=== PATIENT | male | born 1970 | race Caucasian/White ===

== ENCOUNTER 2024-06-16 01:29 | Emergency (ER) | payer OTHER ==
[2024-06-16] MEDS: Benzonatate 100 MG Cap PO ONE (02:12)
[2024-06-16 02:35] LABS: BASOPHILS ABSOLUTE AUTO 0.1 K/mm3 (0.0-0.2); BASOPHILS PERCENT AUTO 0.7 % (0.0-1.0); EOSINOPHILS ABSOLUTE AUTO 0.2 K/mm3 (0.0-0.4); EOSINOPHILS PERCENT AUTO 2.3 % (0.0-6.0); HEMATOCRIT 41.6 % (42.0-52.0); HEMOGLOBIN 14.1 gm/dl (14.0-18.0); IMMATURE GRAN ABSOLUTE AUTO 0.03 K/mm3 (0.00-0.05); IMMATURE GRAN PERCENT AUTO 0.4 % (0.0-0.4); LYMPHOCYTES ABSOLUTE AUTO 1.6 K/mm3 (1.0-4.8); MEAN CORPUSCULAR HEMOGLOBIN 29.3 pg (28.0-32.0); MEAN CORPUSCULAR HGB CONC 33.9 g/dl (32.0-36.0); MEAN CORPUSCULAR VOLUME 86.5 fl (83.0-99.0); MEAN PLATELET VOLUME 8.8 fl (9.4-12.4); MONOCYTES ABSOLUTE AUTO 1.2 K/mm3 (0.0-0.8); MONOCYTES PERCENT AUTO 14.6 % (0.0-8.0); NEUTROPHILS ABSOLUTE AUTO 5.1 K/mm3 (1.8-7.7); PLATELET COUNT,PLT 214 K/mm3 (150-400); RED BLOOD CELL COUNT 4.81 M/mm3 (4.52-5.90); WHITE BLOOD CELL COUNT,WBC 8.22 K/mm3 (3.9-11.3)
[2024-06-16 02:58] LABS: A/G RATIO 0.8 (1-2); ALBUMIN 3.2 g/dl (3.4-5.0); ANION GAP 13.1 (5-15); BILIRUBIN TOTAL 0.4 mg/dL (0.2-1.0); BUN/CREATININE RATIO 10.7 (14-18); CALCIUM 9.2 mg/dL (8.5-10.1); CREATININE 1.4 mg/dL (0.7-1.3); EST CRCL DRUG DOSING (CG) 69.75 mL/min; POTASSIUM,K 4.1 mEq/L (3.5-5.1); PROTEIN TOTAL,TP 7.2 g/dl (6.4-8.2)
== END 2024-06-16 03:44 | disposition home or self-care (01) ==
LOC: JD.ED 01:29
DX: U07.1 COVID-19 (principal); Z88.5 Allergy status to narcotic agent; Z87.891 Personal history of nicotine dependence; Z79.899 Other long term (current) drug therapy
CPT/HCPCS: 36415; 71045; 80053; 85025; 87428; 99284; A9270